=== PATIENT | male | born 1935 | race Caucasian/White ===

== ENCOUNTER → 2021-06-20 | Outpatient (REF) | payer MEDICARE | LOC: M LAB REF 15:01 | PROVIDERS: ATTEND Physician Assistant | DX: K80.10 Calculus of gallbladder with chronic cholecystitis without obstruction (principal) ==

== ENCOUNTER → 2021-07-04 | Outpatient (CLI) | payer MEDICARE ==
[2021-07-04 10:44] LABS: BLOOD UREA NITROGEN 15 MG/DL (7-18); CREATININE FOR GFR 0.73 MG/DL (0.70-1.30); GLOMERULAR FILTRATION RATE > 60.0 (>35)
== END ==
LOC: M LAB 09:37
PROVIDERS: ATTEND Surgery
DX: Z01.810 Encounter for preprocedural cardiovascular examination (principal)

== ENCOUNTER → 2021-08-10 | Outpatient (CLI) | payer MEDICARE ==
[~2021-08-10] MED LIST: BACTDSTA PO; EQL50TAB2 PO; FINA5TAB2 PO; IRON240T PO; MELO15TA28 PO; METO1TAB87 PO; PANT40TA29 PO; SIMV10TA21 PO; SYMB16INH INH; TERA5CAP3 PO
== END ==
LOC: M LABSMTC 11:06
PROVIDERS: ATTEND Anesthesiology
DX: Z01.812 Encounter for preprocedural laboratory examination (principal); Z20.822 Contact with and (suspected) exposure to COVID-19

== ENCOUNTER 2021-08-15 09:47 | Inpatient (IN) | payer MEDICARE ==
[~2021-08-15] VITALS: Ht 177.8 cm; Wt 75.3 kg
[~2021-08-15 09:47] MED LIST changes: +LIDOCAINE 2% 100MG/5ML SDV (FOR ANES.) As Ordered ONE; +MIDAZOLAM INJ 2MG/2ML VIAL (J2250 PER 1MG) As Ordered ONE; +ONDANSETRON 4MG/2ML VIAL As Ordered ONE; +ROCURONIUM BROMIDE 50 MG/5 ML VIAL As Ordered ONE; +cefoTEtan DISODIUM 2 GM in D5W MINI-BAG PLUS 50 ML IV ONE; +dexameTHASONE 4 MG/ML 1ML VIAL (J1100 PER 1MG) As Ordered ONE; +fentaNYL 100 MCG/2 ML INJECTION As Ordered ONE; +propofoL 200 MG/20 ML VIAL As Ordered ONE
[2021-08-15] MEDS ORDERED: BUPIVACAINE HCL 0.25% 30ML VIAL As Ordered ONE (10:47)
[2021-08-15] MEDS ORDERED: ROCURONIUM BROMIDE 50 MG/5 ML VIAL As Ordered ONE (13:22)
[2021-08-15] MEDS ORDERED: LACRILUBE (AKWA TEARS) OPHTH OINT 3.5 GM As Ordered ONE (13:24)
[2021-08-15] MEDS ORDERED: SUGAMMADEX SODIUM 500 MG/5 ML VIAL (BRIDION) As Ordered ONE (13:30)
[2021-08-15] MEDS ORDERED: ACETAMINOPHEN 1000MG 100ML IV BTL (OFIRMEV) (J0131 PER 10MG) As Ordered ONE (13:30)
[2021-08-15] MEDS ORDERED: KETOROLAC 60MG 2ML VIAL As Ordered ONE (13:30)
[2021-08-15] MEDS ORDERED: LABETALOL 100MG/20ML VIAL As Ordered ONE (13:37)
[2021-08-15] MEDS ORDERED: HYDROmorphone HCL 2MG/ML 1ML VIAL As Ordered ONE (14:40)
[2021-08-15] MEDS ORDERED: oxyCODONE 5MG TAB PO PRN ×2 (15:20→15:55)
[2021-08-15] MEDS ORDERED: PROMETHAZINE 25MG/ML 1ML VIAL IV PRN (15:20)
[2021-08-15] MEDS ORDERED: HYDROMORPHONE HCL 0.5 MG/ 0.5 ML SYRINGE (J1170 PER 1) IV PRN (15:20)
[2021-08-15] MEDS ORDERED: ONDANSETRON 4MG/2ML VIAL IV PRN ×3 (15:20→16:10)
[2021-08-15] MEDS ORDERED: METOCLOPRAMIDE INJ 10MG/2ML VIAL (J2765 PER 1) IV PRN (15:20)
[2021-08-15] MEDS ORDERED: LR 1,000 ML IV SCH ×2 (15:20→15:55)
[2021-08-15] MEDS ORDERED: MEPERIDINE INJ 25 MG/ML VIAL (J2175) IV PRN (15:20)
[2021-08-15] MEDS ORDERED: fentaNYL 100 MCG/2 ML INJECTION IV PRN (15:55)
[2021-08-15] MEDS ORDERED: ACETAMINOPHEN TAB 650MG DOSE (2X325MG) PO PRN (16:10)
[2021-08-15 17:12] VITALS: BP 143/65
[2021-08-15 17:51] VITALS: BP 128/61
[2021-08-15] MEDS: LR 1,000 ML IV SCH (18:00)
[2021-08-15 18:46] VITALS: BP 132/61
[2021-08-15 20:45] VITALS: BP 132/61
[2021-08-15] MEDS: SIMVASTATIN 10 MG TAB PO SCH (21:24)
[2021-08-15] MEDS: PANTOPRAZOLE 40MG TAB (PROTONIX) PO SCH (21:24)
[2021-08-15 22:00] VITALS: BP 123/54
[2021-08-16] VITALS: BP 136/63
[2021-08-16] MEDS: cefoTEtan DISODIUM 2 GM in D5W MINI-BAG PLUS 50 ML IV SCH ×2 (01:00→13:47)
[2021-08-16 01:46] VITALS: O2SAT 93
[2021-08-16] MEDS: LR 1,000 ML IV SCH (02:58)
[2021-08-16 04:00] VITALS: BP 139/65
[2021-08-16 06:00] VITALS: BP 124/58
[2021-08-16 07:20] LABS: BASO % 0.1 % (0.0-1.0); HEMATOCRIT 31.5 % (42.0-52.0); HEMOGLOBIN 10.2 g/dl (13.5-17.5); LYMPH % 10.9 % (24.0-44.0); MEAN CORPUSCULAR HEMOGLOBIN 29.8 pg (27.0-33.0); MEAN CORPUSCULAR HGB CONC 32.4 g/dl (32.0-36.5); MEAN CORPUSCULAR VOLUME 92.1 fl (80.0-96.0); MONO % 5.2 % (2.0-8.0); NEUTROPHILS # 15.2 10^3/uL (1.5-8.5); NEUTROPHILS % 83.1 % (36.0-66.0); PLATELET COUNT, AUTOMATED 441 10^3/uL (150-450); RED BLOOD COUNT 3.42 10^6/uL (4.30-6.10); WHITE BLOOD COUNT 18.3 10^3/uL (4.0-10.0)
[2021-08-16 07:44] LABS: ALBUMIN 2.2 GM/DL (3.2-5.2); ALT/SGPT 14 U/L (12-78); BILIRUBIN,DIRECT 0.2 MG/DL (0.0-0.2); BILIRUBIN,TOTAL 0.4 MG/DL (0.2-1.0); BLOOD UREA NITROGEN 16 MG/DL (7-18); CALCIUM LEVEL 8.2 MG/DL (8.8-10.2); CARBON DIOXIDE LEVEL 28 MEQ/L (21-32); CHLORIDE LEVEL 103 MEQ/L (98-107); CREATININE FOR GFR 0.98 MG/DL (0.70-1.30); GLOMERULAR FILTRATION RATE > 60.0 (>35); GLUCOSE, FASTING 93 MG/DL (70-100); POTASSIUM SERUM 4.3 MEQ/L (3.5-5.1); SODIUM LEVEL 137 MEQ/L (136-145); TOTAL PROTEIN 5.9 GM/DL (6.4-8.2)
[2021-08-16] MEDS: PANTOPRAZOLE 40MG TAB (PROTONIX) PO SCH ×2 (09:17→20:01)
[2021-08-16] MEDS: FINASTERIDE 5MG TAB PO SCH (09:17)
[2021-08-16] MEDS: TERAZOSIN 5MG CAPSULE PO SCH (09:17)
[2021-08-16 14:00] VITALS: BP 127/56
[2021-08-16 18:00] VITALS: BP 126/58
[2021-08-16] MEDS: SIMVASTATIN 10 MG TAB PO SCH (20:01)
[2021-08-16] MEDS ORDERED: OLANZapine INTRAMUSCULAR 10MG VIAL IM ONE (22:10)
[2021-08-16] MEDS: NORCO, ANEXSIA 5/325MG TABLET (HYDROcodone/ACETAMINOPHEN) PO PRN (23:30)
[2021-08-17] MEDS: cefoTEtan DISODIUM 2 GM in D5W MINI-BAG PLUS 50 ML IV SCH (01:00)
[2021-08-17] MEDS ORDERED: RAMELTEON 8 MG TAB (ROZEREM) PO PRN (01:45)
[2021-08-17] MEDS ORDERED: OLANZapine INTRAMUSCULAR 10MG VIAL IM ONE (02:00)
[2021-08-17 06:00] VITALS: BP 117/60
[2021-08-17] MEDS ORDERED: LevoFLOXacin 500 MG TABLET PO SCH (06:00)
[2021-08-17 07:58] LABS: VENOUS BASE EXCESS 5.7 (-2.0-2.0); VENOUS HCO3 31.4 MEQ/L (23.0-27.0); VENOUS O2 SATURATION 74.1 % (60.0-80.0); VENOUS PARTIAL PRESSURE CO2 50.7 mmHg (38.0-50.0); VENOUS PARTIAL PRESSURE O2 40.9 mmHg (30.0-50.0); VENOUS STANDARD HCO3 29.1 MEQ/L
[2021-08-17 08:02] VITALS: BP 122/60
[2021-08-17] MEDS: TERAZOSIN 5MG CAPSULE PO SCH (08:02)
[2021-08-17] MEDS: PANTOPRAZOLE 40MG TAB (PROTONIX) PO SCH (08:02)
[2021-08-17] MEDS: FINASTERIDE 5MG TAB PO SCH (08:03)
[2021-08-17] MEDS: NORCO, ANEXSIA 5/325MG TABLET (HYDROcodone/ACETAMINOPHEN) PO PRN (08:03)
[2021-08-17 08:07] LABS: BASO # 0.1 10^3/uL (0.0-0.2); BASO % 0.6 % (0.0-1.0); EOS # 0.2 10^3/uL (0.0-0.5); EOS % 1.6 % (0.0-3.0); HEMATOCRIT 34.9 % (42.0-52.0); HEMOGLOBIN 11.2 g/dl (13.5-17.5); LYMPH # 2.4 10^3/uL (1.5-5.0); LYMPH % 24.3 % (24.0-44.0); MEAN CORPUSCULAR HEMOGLOBIN 29.3 pg (27.0-33.0); MEAN CORPUSCULAR HGB CONC 32.1 g/dl (32.0-36.5); MEAN CORPUSCULAR VOLUME 91.4 fl (80.0-96.0); MONO # 0.9 10^3/uL (0.0-0.8); MONO % 8.9 % (2.0-8.0); NEUTROPHILS # 6.4 10^3/uL (1.5-8.5); PLATELET COUNT, AUTOMATED 459 10^3/uL (150-450); RED BLOOD COUNT 3.82 10^6/uL (4.30-6.10); WHITE BLOOD COUNT 10.1 10^3/uL (4.0-10.0)
[2021-08-17 08:37] LABS: ALBUMIN 2.4 GM/DL (3.2-5.2); ALT/SGPT 17 U/L (12-78); BILIRUBIN,TOTAL 0.3 MG/DL (0.2-1.0); BLOOD UREA NITROGEN 14 MG/DL (7-18); CALCIUM LEVEL 9.2 MG/DL (8.8-10.2); CARBON DIOXIDE LEVEL 30 MEQ/L (21-32); CHLORIDE LEVEL 107 MEQ/L (98-107); CREATININE FOR GFR 0.87 MG/DL (0.70-1.30); GLOMERULAR FILTRATION RATE > 60.0 (>35); GLUCOSE, FASTING 101 MG/DL (70-100); MAGNESIUM LEVEL 1.2 MG/DL (1.8-2.4); POTASSIUM SERUM 4.1 MEQ/L (3.5-5.1); SODIUM LEVEL 142 MEQ/L (136-145); TOTAL PROTEIN 6.3 GM/DL (6.4-8.2)
[2021-08-17 08:43] LABS: VITAMIN B12 LEVEL 266 PG/ML (247-911)
[2021-08-17 10:00] VITALS: BP 106/72
[2021-08-17] MEDS ORDERED: LEVO500T4 PO (10:16)
== END 2021-08-17 11:45 | disposition home or self-care (01) | DRG 419 ==
LOC: M SDC 09:47 → M MS5PR 17:05 → M SDC 08-16 23:00 → M MS5PR 08-16 23:01
PROVIDERS: ADMIT Surgery; ATTEND Surgery
PROC: 0W9F40Z Drainage of Abdominal Wall with Drainage Device, Percutaneous Endoscopic Approach (ICD-10-PCS; 2021-08-15)
PROC: 0FT44ZZ Resection of Gallbladder, Percutaneous Endoscopic Approach (ICD-10-PCS; principal; 2021-08-15 11:30)
DX: K80.43 Calculus of bile duct with acute cholecystitis with obstruction (principal); K66.0 Peritoneal adhesions (postprocedural) (postinfection); B96.20 Unspecified Escherichia coli [E. coli] as the cause of diseases classified elsewhere; I11.0 Hypertensive heart disease with heart failure; I50.9 Heart failure, unspecified; I25.10 Atherosclerotic heart disease of native coronary artery without angina pectoris; Z87.891 Personal history of nicotine dependence; Z79.899 Other long term (current) drug therapy